=== PATIENT | male | born 1940 | race Caucasian/White ===

== ENCOUNTER → 2021-06-08 | Outpatient (CLI) | payer MEDICARE, OTHER ==
[~2021-06-08] MED LIST: CIPR500 PO; LISI20 PO; METO50ER PO; Macrobid 100 M100 MG PO
== END | disposition home or self-care (01) ==
LOC: LAB SHORT 12:40 → LAB 12:40
DX: N30.01 Acute cystitis with hematuria (principal); R30.0 Dysuria
CPT/HCPCS: 87077; 87086; 87186

== ENCOUNTER 2021-11-22 00:31 | Emergency (ER) | payer MEDICARE, OTHER ==
[~2021-11-22] VITALS: Ht 188 cm; Wt 102.1 kg
[~2021-11-22 00:31] MED LIST changes: +AMLODIPINE-OLM1 EACH PO; +CEPH500 PO; +TEMAZEPAM PO
[2021-11-22 03:43] LABS: Source, Urine Catheter
[2021-11-22 03:45] LABS: Bilirubin, Urine Neg (Neg); Blood, Urine 3+ (Neg); Glucose Qualitative, Urine Neg (Neg); Ketones, Urine Neg (Neg); Leukocyte Esterase, Urine 1+ (Neg); Nitrite, Urine Neg (Neg); Protein, Urine 1+ (Neg); Specific Gravity, Urine 1.025 (1.003-1.022); Urobilinogen, Urine NORM (Normal)
[2021-11-22 03:51] LABS: Color, Urine Yellow (P-Yellow)
[2021-11-22 03:52] LABS: Appearance, Urine Hazy (Clear); Bacteria Rare /hpf; Squamous Epithelial Cells Rare /hpf (Few); White Blood Cells, Urine 0-2 /hpf (0-5)
== END 2021-11-22 04:26 | disposition home or self-care (01) ==
LOC: ER 00:31
PROVIDERS: Student in an Organized Health Care Education/Training Program
DX: R33.9 Retention of urine, unspecified (principal); I10 Essential (primary) hypertension; Z79.899 Other long term (current) drug therapy
CPT/HCPCS: 51702; 51798; 81001; 87086; 99283-25

== ENCOUNTER → 2021-11-28 | Outpatient (CLI) | payer MEDICARE, OTHER | END | disposition home or self-care (01) | LOC: LAB SHORT 11:00 | DX: R33.9 Retention of urine, unspecified (principal) | CPT/HCPCS: 87077; 87086; 87186 ==

== ENCOUNTER 2022-01-29 20:32 | Emergency (ER) | payer MEDICARE, OTHER ==
[~2022-01-29] VITALS: Ht 188 cm; Wt 99.8 kg
[~2022-01-29 20:32] MED LIST changes: +Cefpodoxime Pr100 MG PO; +Diflucan100 MG PO; +TAMS.4ER PO
[2022-02-01] MEDS ORDERED: Pyridium100 MG PO (23:05)
== END 2022-01-29 22:30 | disposition home or self-care (01) ==
LOC: ER 20:32
DX: R35.0 Frequency of micturition (principal); Z87.440 Personal history of urinary (tract) infections; I10 Essential (primary) hypertension; Z79.899 Other long term (current) drug therapy
CPT/HCPCS: 51798; 99283-25

== ENCOUNTER 2022-02-02 20:48 | Emergency (ER) | payer MEDICARE, OTHER ==
[~2022-02-02] VITALS: Ht 188 cm; Wt 59.0 kg
[~2022-02-02 20:48] MED LIST changes: +Pyridium100 MG PO
[2022-06-07] MEDS ORDERED: Bactrim Ds Tab1 EACH PO ×2 (16:27→20:15)
== END 2022-02-02 22:16 | disposition home or self-care (01) ==
LOC: ER 20:48
DX: R33.9 Retention of urine, unspecified (principal); I10 Essential (primary) hypertension; Z79.899 Other long term (current) drug therapy
CPT/HCPCS: 51702; 51798; 99283-25

== ENCOUNTER 2022-02-10 13:32 | Emergency (ER) | payer MEDICARE, OTHER ==
[~2022-02-10] VITALS: Ht 188 cm; Wt 102.1 kg
== END 2022-02-10 14:00 | disposition home or self-care (01) ==
LOC: ER 13:32
DX: T83.098A Other mechanical complication of other urinary catheter, initial encounter (principal); I10 Essential (primary) hypertension; Z79.899 Other long term (current) drug therapy
CPT/HCPCS: 99282

== ENCOUNTER 2022-02-13 19:55 | Emergency (ER) | payer MEDICARE, OTHER ==
[~2022-02-13] VITALS: Ht 188 cm; Wt 102.1 kg
[2022-02-13 20:47] LABS: Source, Urine Foley catheter
[2022-02-13 21:00] LABS: Bilirubin, Urine Neg (Neg); Blood, Urine Neg (Neg); Glucose Qualitative, Urine Neg (Neg); Ketones, Urine Neg (Neg); Leukocyte Esterase, Urine 1+ (Neg); Nitrite, Urine Neg (Neg); Protein, Urine Neg (Neg); Specific Gravity, Urine 1.015 (1.003-1.022); Urobilinogen, Urine NORM (Normal)
[2022-02-13 21:01] LABS: Appearance, Urine Clear (Clear); Color, Urine Yellow (P-Yellow)
[2022-02-13 21:08] LABS: Bacteria Few /hpf; Red Blood Cells, Urine Not Seen /hpf (0-2); Squamous Epithelial Cells Not Seen /hpf (Few)
== END 2022-02-13 22:00 | disposition home or self-care (01) ==
LOC: ER 19:55
PROVIDERS: Physician Assistant
DX: R33.9 Retention of urine, unspecified (principal); I10 Essential (primary) hypertension; Z79.899 Other long term (current) drug therapy
CPT/HCPCS: 51702; 81001; 87077; 87086; 87186; 99283-25

== ENCOUNTER 2022-02-26 16:59 | Emergency (ER) | payer MEDICARE, OTHER ==
[~2022-02-26] VITALS: Ht 188 cm; Wt 102.1 kg
[2022-02-26 18:31] LABS: Source, Urine Clean Catch
[2022-02-26 18:52] LABS: Appearance, Urine Hazy (Clear); Bilirubin, Urine Neg (Neg); Blood, Urine 2+ (Neg); Color, Urine Yellow (P-Yellow); Glucose Qualitative, Urine Neg (Neg); Ketones, Urine Neg (Neg); Leukocyte Esterase, Urine 3+ (Neg); Nitrite, Urine Pos (Neg); Protein, Urine 1+ (Neg); Urobilinogen, Urine NORM (Normal)
[2022-02-26 19:23] LABS: Bacteria Many /hpf; Hyaline Casts 0-2 /lpf (0-2); Red Blood Cells, Urine 0-2 /hpf (0-2); Squamous Epithelial Cells Not Seen /hpf (Few)
== END 2022-02-26 18:21 | disposition home or self-care (01) ==
LOC: ER 16:59
PROVIDERS: Physician Assistant
DX: Z46.6 Encounter for fitting and adjustment of urinary device (principal); N40.1 Benign prostatic hyperplasia with lower urinary tract symptoms; R33.8 Other retention of urine; I10 Essential (primary) hypertension; Z79.899 Other long term (current) drug therapy
CPT/HCPCS: 81001; 87077; 87086; 87186; 99283

== ENCOUNTER 2022-02-28 19:07 | Emergency (ER) | payer MEDICARE, OTHER ==
[~2022-02-28] VITALS: Ht 188 cm; Wt 102.1 kg
[2022-02-28 21:16] LABS: Source, Urine Foley catheter
[2022-02-28 21:19] LABS: Appearance, Urine Cloudy (Clear); Bilirubin, Urine Neg (Neg); Blood, Urine 1+ (Neg); Color, Urine Amber (P-Yellow); Glucose Qualitative, Urine Neg (Neg); Ketones, Urine Neg (Neg); Leukocyte Esterase, Urine 3+ (Neg); Nitrite, Urine Neg (Neg); Protein, Urine 2+ (Neg); Urobilinogen, Urine NORM (Normal)
[2022-02-28 21:28] LABS: Bacteria Many /hpf; Squamous Epithelial Cells Rare /hpf (Few); White Blood Cells, Urine 50-100 /hpf (0-5)
[2022-02-28 21:29] LABS: WBC Cast 0-2 /lpf (0)
[2022-02-28] MEDS ORDERED: CEFD300 PO (21:33)
[2022-06-07] MEDS ORDERED: Bactrim Ds Tab1 EACH PO ×2 (16:27→20:15)
== END 2022-02-28 22:23 | disposition home or self-care (01) ==
LOC: ER 19:07
PROVIDERS: Emergency Medicine
DX: N39.0 Urinary tract infection, site not specified (principal); L30.9 Dermatitis, unspecified; I10 Essential (primary) hypertension; Z79.899 Other long term (current) drug therapy
CPT/HCPCS: 51702; 51798; 81001; 87077; 87086; 87186; 96372; 99283-25; A9270; J3301

== ENCOUNTER → 2022-03-05 | Outpatient (CLI) | payer MEDICARE, OTHER ==
[~2022-03-05] MED LIST changes: +CEFD300 PO
== END | disposition home or self-care (01) ==
LOC: LAB SHORT 09:02
DX: L30.8 Other specified dermatitis (principal)
CPT/HCPCS: 88305; 88312

== ENCOUNTER 2022-04-27 15:24 | Emergency (ER) | payer MEDICARE, OTHER ==
[~2022-04-27] VITALS: Ht 188 cm; Wt 102.1 kg
[2022-04-27 17:22] LABS: Source, Urine Clean Catch
[2022-04-27 17:36] LABS: Appearance, Urine Cloudy (Clear); Bilirubin, Urine Neg (Neg); Blood, Urine 2+ (Neg); Color, Urine Yellow (P-Yellow); Glucose Qualitative, Urine Neg (Neg); Ketones, Urine Neg (Neg); Leukocyte Esterase, Urine 3+ (Neg); Nitrite, Urine Pos (Neg); Protein, Urine 2+ (Neg); Urobilinogen, Urine NORM (Normal)
[2022-04-27 18:02] LABS: White Blood Cells, Urine 25-50 /hpf (0-5)
[2022-04-27 18:03] LABS: Bacteria Many /hpf; Squamous Epithelial Cells Rare /hpf (Few)
[2022-04-27] MEDS ORDERED: CEPH500 PO (18:24)
== END 2022-04-27 18:32 | disposition home or self-care (01) ==
LOC: ER 15:24
PROVIDERS: Physician Assistant
DX: T83.091A Other mechanical complication of indwelling urethral catheter, initial encounter (principal); Y73.8 Miscellaneous gastroenterology and urology devices associated with adverse incidents, not elsewhere classified; N40.1 Benign prostatic hyperplasia with lower urinary tract symptoms; R33.8 Other retention of urine; N39.0 Urinary tract infection, site not specified; Z79.899 Other long term (current) drug therapy; I10 Essential (primary) hypertension
CPT/HCPCS: 51702; 81001; A9270

== ENCOUNTER 2022-10-13 20:18 | Emergency (ER) | payer MEDICARE, OTHER ==
[~2022-10-13] VITALS: Ht 188 cm; Wt 99.8 kg
[~2022-10-13 20:18] MED LIST changes: +Bactrim Ds Tab1 EACH PO
[2022-10-13 21:15] LABS: Source, Urine Clean Catch
[2022-10-13 21:22] LABS: Appearance, Urine Hazy (Clear); Bilirubin, Urine Neg (Neg); Blood, Urine 4+ (Neg); Color, Urine Yellow (P-Yellow); Glucose Qualitative, Urine Neg (Neg); Ketones, Urine Neg (Neg); Leukocyte Esterase, Urine 3+ (Neg); Nitrite, Urine Neg (Neg); Protein, Urine 2+ (Neg); Urobilinogen, Urine NORM (Normal)
[2022-10-13 21:29] LABS: Bacteria Many /hpf; Granular Casts 0-2 /lpf (0); Hyaline Casts 0-2 /lpf (0-2); Squamous Epithelial Cells Rare /hpf (Few); White Blood Cells, Urine TNTC /hpf (0-5)
[2022-10-13] MEDS ORDERED: CEPH500 PO (22:20)
== END 2022-10-13 22:35 | disposition home or self-care (01) ==
LOC: ER 20:18
PROVIDERS: Student in an Organized Health Care Education/Training Program
DX: N39.0 Urinary tract infection, site not specified (principal); I10 Essential (primary) hypertension; Z91.048 Other nonmedicinal substance allergy status; Z79.899 Other long term (current) drug therapy
CPT/HCPCS: 51798; 81001; A9270